=== PATIENT | female | born 1950 | race Caucasian/White ===

== ENCOUNTER → 2021-11-15 | Day surgery (SDC) | payer MEDICARE, OTHER ==
[~2021-11-15] VITALS: Ht 162.6 cm; Wt 63.5 kg
[~2021-11-15] MED LIST: ACETAMINOPHEN500 M1 PO; NORCO 5-325 TA1 EACH PO; PRILOSEC20 MG PO
[2021-11-15 08:20] LABS: HCT 40.4 % (37.0-47.0); HGB 13.3 g/dl (12.5-16.0); MCHC 32.9 g/dL (32.0-36.0); MCV 94.2 fL (78.0-100.0); MPV 9.3 fL (6.0-9.5); RBC 4.29 M/uL (4.20-5.40); RDW 13.4 % (11.5-14.0); WBC 5.3 K/uL (4.0-10.5)
[2021-11-15 08:30] LABS: ALBUMIN 3.5 g/dL (3.4-5.0); BILIRUBIN - TOTAL 0.4 mg/dL (0.2-1.0); BUN/CREAT RATIO (CALC) 11.1 RATIO; CREATININE 0.72 mg/dL (0.51-0.95); GLOBULIN (CALCULATION) 3.9 g/dL; POTASSIUM 3.6 mmol/L (3.5-5.1); TOTAL PROTEIN 7.4 g/dL (6.4-8.2)
== END | disposition home or self-care (01) ==
LOC: FAS 07:29
PROVIDERS: Surgery
DX: I87.2 Venous insufficiency (chronic) (peripheral) (principal); K21.9 Gastro-esophageal reflux disease without esophagitis; M81.0 Age-related osteoporosis without current pathological fracture; F41.9 Anxiety disorder, unspecified; R06.00 Dyspnea, unspecified; Z85.118 Personal history of other malignant neoplasm of bronchus and lung; Z92.21 Personal history of antineoplastic chemotherapy; Z92.3 Personal history of irradiation; Z79.899 Other long term (current) drug therapy; Z88.0 Allergy status to penicillin; Z88.2 Allergy status to sulfonamides; Z88.5 Allergy status to narcotic agent; Z88.8 Allergy status to other drugs, medicaments and biological substances; Z87.891 Personal history of nicotine dependence
CPT/HCPCS: 36415; 80053; 93005; J2704; J3010; J7120